=== PATIENT | male | born 1965 | race Caucasian/White ===

== ENCOUNTER 2023-10-31 06:32 | Day surgery (SDC) | payer BC ==
[~2023-10-31] VITALS: Ht 177.8 cm; Wt 87.1 kg
[2023-10-31] VITALS (13 sets, daily range): BP systolic 97–126; BP diastolic 55–77; PULSE 51–64; RESP 12; TEMP 98.2; O2SAT 96–100
[2023-10-31] MEDS ORDERED: LORazepam 0.5 MG tablet PO PRN (07:10)
[2023-10-31] MEDS ORDERED: diphenhydrAMINE 25mg capsule PO PRN (07:10)
[2023-10-31] MEDS ORDERED: nitroGLYCERIN 0.4mg SUBLingual tab SL PRN ×2 (07:10→10:35)
[2023-10-31] MEDS ORDERED: normal saline 1,000 ML IV SCH (07:10)
[2023-10-31] MEDS ORDERED: ATOR20TA66 PO (07:46)
[2023-10-31] MEDS ORDERED: AMLO2.5T5 PO (07:46)
[2023-10-31] MEDS ORDERED: [UNRECOGNIZED DRUG - CODE] PO (07:46)
[2023-10-31] MEDS ORDERED: ASPI-611 PO (07:46)
[2023-10-31] MEDS ORDERED: LATA2.5D14 EACHEYE (07:46)
[2023-10-31] MEDS ORDERED: NITR0.4T48 SL (07:46)
[2023-10-31] MEDS ORDERED: CRAN500C4 PO (07:46)
[2023-10-31] MEDS ORDERED: METO-395 PO (07:46)
[2023-10-31 07:55] LABS: BASOPHILS % (AUTO) 1.1 % (0-1); EOSINOPHILS # (AUTO) 0.2 X10'3 (0-0.9); EOSINOPHILS % (AUTO) 4.2 % (0-6); HEMATOCRIT 40.8 % (42.0-52.0); LYMPHOCYTES # (AUTO) 1.1 X10'3 (1.1-4.8); LYMPHOCYTES % (AUTO) 24.4 % (21-51); MEAN CORPUSCULAR HEMOGLOBIN 32.1 PG (27.0-31.0); MEAN CORPUSCULAR HGB CONC 34.3 g/dL (33.0-36.5); MEAN CORPUSCULAR VOLUME 93.6 FL (78-98); MEAN PLATELET VOLUME 7.9 FL (7.4-10.4); MONOCYTES # (AUTO) 0.5 X10'3 (0-0.9); NEUTROPHILS # (AUTO) 2.6 X10'3 (1.8-7.7); NEUTROPHILS % (AUTO) 58.3 % (42-75); PLATELET COUNT 146 X10'3 (140-440); RED BLOOD COUNT 4.36 X10'6 (4.70-6.10); RED CELL DISTRIBUTION WIDTH 14.3 % (11.5-14.5); WHITE BLOOD COUNT 4.4 X10'3 (4.5-11.0)
[2023-10-31 08:03] LABS: APTT 26 SECONDS (22-32); INR 0.9 INR; PROTHROMBIN TIME 10.2 SECONDS (9.0-12.0)
[2023-10-31 08:11] LABS: ANION GAP 10 (8-16); BLOOD UREA NITROGEN 18 MG/DL (7-18); BUN/CREATININE RATIO 15.7 (10.0-20.0); CALCIUM 9.5 MG/DL (8.5-10.1); CHLORIDE 104 MMOL/L (99-107); CREATININE 1.15 MG/DL (0.60-1.10); GLUCOSE 111 MG/DL (70-104); POTASSIUM 4.1 MMOL/L (3.5-5.1); PRO BRAIN NATRIURETIC PEPTIDE 75 PG/ML (0-125); SODIUM 141 MMOL/L (135-145); TOTAL CARBON DIOXIDE 27.5 MMOL/L (24-32); eCRCL 73 ML/MIN; eGFR 66 ML/MIN
[2023-10-31] MEDS ORDERED: midazolam 1 mg/ML 2ml injection ONE (08:48)
[2023-10-31] MEDS ORDERED: iohexol 350 MG/ML 50ML vial IV ONE (08:48)
[2023-10-31] MEDS ORDERED: LIDOcaine 1% 30ml preserv. free vial ONE (08:48)
[2023-10-31] MEDS ORDERED: iohexol 350MG/ML 100ml bottle IV ONE (08:48)
[2023-10-31] MEDS ORDERED: fentaNYL/PF 50MCG/1 ML 2ML syringe ONE (08:48)
[2023-10-31] MEDS ORDERED: ondansetron/PF 4mg/2ml inj IV PRN (10:30)
[2023-10-31] MEDS ORDERED: normal saline 1000ml 1,000 ML IV SCH (10:30)
[2023-10-31] MEDS ORDERED: OXAZEpam 15mg capsule PO PRN (10:35)
== END 2023-10-31 16:55 | disposition home or self-care (01) ==
LOC: PAS 06:32 → SSTAY O 16:55
PROVIDERS: ATTEND Internal Medicine Cardiovascular Disease
DX: I20.9 Angina pectoris, unspecified (principal); R06.09 Other forms of dyspnea; I48.0 Paroxysmal atrial fibrillation; E78.5 Hyperlipidemia, unspecified; J44.9 Chronic obstructive pulmonary disease, unspecified; F17.210 Nicotine dependence, cigarettes, uncomplicated; Z72.89 Other problems related to lifestyle; Z88.5 Allergy status to narcotic agent; Z88.1 Allergy status to other antibiotic agents; Z79.899 Other long term (current) drug therapy; Z98.890 Other specified postprocedural states
CPT/HCPCS: 36415; 71045; 80048; 83880; 84484; 85025; 85610; 85730; 93005; 93458; 99152; J1644; J2250; J3010; J3490; J7030; Q0163; Q9967; 99153; A6258; C1760